=== PATIENT | male | born 1950 | race Caucasian/White ===

== ENCOUNTER 2017-09-28 08:32 | Inpatient (IN) | payer MEDICARE, OTHER ==
[~2017-09-28] VITALS: Ht 177.8 cm; Wt 87.5 kg
[~2017-09-28 08:32] MED LIST: AMLODIPINE-BENAZ PO
[2017-09-28] MEDS ORDERED: AML PO (08:41)
[2017-09-28] MEDS ORDERED: PANTOPRAZOLE 40 MG 10ML VIAL IV STA (09:00)
[2017-09-28] MEDS ORDERED: SODIUM CHLORIDE 0.9% 1000ML 1,000 ML IV STA (09:00)
[2017-09-28 10:00] LABS: BASOPHILS % 0.3 % (0.0-1.0); EOSINOPHILS % 0.1 % (0.0-6.0); HEMATOCRIT 33.1 % (38.2-49.6); HEMOGLOBIN 11.7 g/dL (14.0-18.0); LYMPHOCYTES # (AUTO) 1.2 (1.0-3.2); LYMPHOCYTES % 8.6 % (18.0-39.1); MEAN CORPUSCULAR HEMOGLOBIN 34.1 pg (28-32); MEAN CORPUSCULAR HGB CONC 35.3 g/dL (31-35); MEAN CORPUSCULAR VOLUME 96.5 fL (81-99); MONOCYTES # (AUTO) 1.1 (0.2-0.8); MONOCYTES % 7.4 % (4.4-11.3); NEUTROPHILS # (AUTO) 11.8 (2.1-6.9); NEUTROPHILS % 82.7 % (38.7-80.0); PLATELET COUNT 169 x10e3/uL (140-360); RED BLOOD COUNT 3.43 x10e6/uL (4.3-5.7); RED CELL DISTRIBUTION WIDTH 12.4 % (11.7-14.4)
[2017-09-28 10:06] LABS: INR 0.99; PROTHROMBIN TIME 13.6 seconds (11.9-14.5)
[2017-09-28 10:07] LABS: PARTIAL THROMBOPLASTIN TIME 18.2 seconds (23.8-35.5)
[2017-09-28 10:23] LABS: ALANINE AMINOTRANSFERASE 19 IU/L (0-55); ALBUMIN 3.1 g/dL (3.5-5.0); ALBUMIN/GLOBULIN RATIO 1.4 (0.8-2.0); ALKALINE PHOSPHATASE 45 IU/L (40-150); ANION GAP 12.4 mmol/L (8-16); BLOOD UREA NITROGEN 25 mg/dL (7-26); BUN/CREATININE RATIO 31 (6-25); CALCIUM 8.3 mg/dL (8.4-10.2); CARBON DIOXIDE 23 mmol/L (22-29); CHLORIDE 108 mmol/L (98-107); EST GLOMERULAR FILTRATION RATE > 60 ML/MIN (60-); GLUCOSE 112 mg/dL (74-118); POTASSIUM 4.4 mmol/L (3.5-5.1); SODIUM 139 mmol/L (136-145)
[2017-09-28] MEDS ORDERED: SODIUM CHLORIDE 0.9% 250ML 250 ML IV ONE (11:15)
[2017-09-28] MEDS: D5.45%NS/KCL 20MEQ 1,000 ML IV SCH (12:25)
--- NOTE | 2017-09-28 12:45 | History and Physical ---
This patient comes in with GI bleed. HISTORY OF PRESENT ILLNESS: Mr. Meng Felton is a 67-year-old gentleman with a history of hypertension and reflux. He was in his usual state of health until 1 day prior to admission. The patient started to have diarrhea and some rectal bleeding. The patient has been seen by Dr. Arredondo, his recruiting administrator, and has a history of diverticulosis. He thought it would pass; but this morning, the patient continued to have continuous diarrhea and came into the emergency room because he had a near syncopal episode. He could not make it to his bed, and he was admitted for the same. PAST MEDICAL HISTORY: Fairly healthy gentleman with a history of hypertension. He takes amlodipine 5 mg daily. No other medical history. SURGICAL HISTORY: Noncontributory. SOCIAL HISTORY: Positive for drinking. He drinks about 4 alcoholic beverages of bourbon a night. No smoking. No IV drug abuse either. REVIEW OF SYSTEMS: Negative for chest pain. Positive for some shortness of breath on walking today. No nausea. No vomiting. Positive for diarrhea with hematochezia. No hematemesis. No bloody urine. No dysuria. Positive for some abdominal pain, which is diffuse. Otherwise, negative. No diplopia. No blurry vision. Positive for near syncopal episode this morning. PHYSICAL EXAMINATION GENERAL: The patient is alert and oriented times 3. VITAL SIGNS: Blood pressure is 122/72, temperature 97, pulse ox 100%. CV: S1 and S2 normal, regular rate and rhythm. LUNGS: Clear to auscultation bilaterally. ABDOMEN: Slight amount of tenderness in the left lower quadrant, otherwise negative. EXTREMITIES: No clubbing, no cyanosis, no edema. LABORATORY VALUES: White count 14,000, hemoglobin 11.7, hematocrit 33.1, platelet count 169. Neutrophil count is high at 11.8. Chemistry shows sodium 139, potassium 4.4, chloride 108, estimated GFR was about 60. ALT and AST normal. Also, glucose is normal. Coags were also normal. ASSESSMENT: Gastrointestinal bleed, probably diverticular in nature. The patient will do serial H and H's and keep the patient in-house. His vitals are stable at this time. We will continue monitoring him. We will not start his amlodipine at this time. Consult to Dr. Turk has been done. I have also ordered the appropriate stool studies. Further recommendations per clinical course. Will continue to monitor the patient along with GI. Dr. Mckenzie will take over the case tomorrow. Job#: [id number]
[2017-09-28 16:20] LABS: HEMATOCRIT 29.7 % (38.2-49.6); HEMOGLOBIN 10.4 g/dL (14.0-18.0)
[2017-09-28 22:40] LABS: HEMATOCRIT 27.4 % (38.2-49.6); HEMOGLOBIN 9.8 g/dL (14.0-18.0)
[2017-09-28 23:04] VITALS: BP 124/64
[2017-09-29] MEDS: D5.45%NS/KCL 20MEQ 1,000 ML IV SCH ×2 (01:07→16:00)
[2017-09-29 01:26] VITALS: BP 128/53
[2017-09-29 04:31] LABS: ANION GAP 8.2 mmol/L (8-16); BLOOD UREA NITROGEN 18 mg/dL (7-26); BUN/CREATININE RATIO 24 (6-25); CALCIUM 8.1 mg/dL (8.4-10.2); CARBON DIOXIDE 24 mmol/L (22-29); CHLORIDE 107 mmol/L (98-107); CREATININE, SERUM 0.76 mg/dL (0.72-1.25); EST GLOMERULAR FILTRATION RATE > 60 ML/MIN (60-); GLUCOSE 119 mg/dL (74-118); POTASSIUM 4.2 mmol/L (3.5-5.1); SODIUM 135 mmol/L (136-145)
[2017-09-29 04:46] LABS: BASOPHILS % 0.3 % (0.0-1.0); EOSINOPHILS % 0.3 % (0.0-6.0); HEMATOCRIT 26.9 % (38.2-49.6); HEMOGLOBIN 9.6 g/dL (14.0-18.0); LYMPHOCYTES # (AUTO) 1.5 (1.0-3.2); LYMPHOCYTES % 23.9 % (18.0-39.1); MEAN CORPUSCULAR HEMOGLOBIN 34.2 pg (28-32); MEAN CORPUSCULAR HGB CONC 35.7 g/dL (31-35); MEAN CORPUSCULAR VOLUME 95.7 fL (81-99); MONOCYTES # (AUTO) 0.5 (0.2-0.8); MONOCYTES % 8.1 % (4.4-11.3); NEUTROPHILS # (AUTO) 4.1 (2.1-6.9); NEUTROPHILS % 66.8 % (38.7-80.0); PLATELET COUNT 136 x10e3/uL (140-360); RED BLOOD COUNT 2.81 x10e6/uL (4.3-5.7); RED CELL DISTRIBUTION WIDTH 12.1 % (11.7-14.4)
[2017-09-29] MEDS: PANTOPRAZOLE 40 MG 10ML VIAL IV SCH (09:15)
[2017-09-29 12:02] LABS: HEMATOCRIT 28.3 % (38.2-49.6); HEMOGLOBIN 10.1 g/dL (14.0-18.0)
[2017-09-29 19:11] LABS: HEMATOCRIT 27.9 % (38.2-49.6); HEMOGLOBIN 9.9 g/dL (14.0-18.0)
[2017-09-30] VITALS: BP 149/80
[2017-09-30 00:10] LABS: HEMATOCRIT 25.7 % (38.2-49.6); HEMOGLOBIN 9.3 g/dL (14.0-18.0)
[2017-09-30] MEDS: D5.45%NS/KCL 20MEQ 1,000 ML IV SCH (03:08)
[2017-09-30 03:31] VITALS: BP 149/80
[2017-09-30 04:00] VITALS: BP 110/61
[2017-09-30] MEDS: PANTOPRAZOLE 40 MG 10ML VIAL IV SCH (09:20)
[2017-09-30 09:33] VITALS: BP 138/82
== END 2017-09-30 10:20 | disposition home or self-care (01) | DRG 379 ==
LOC: ER 08:32 → ERHOLD 20:21 → MED/SURG 09-29 22:53
PROVIDERS: ADMIT Internal Medicine; ATTEND Internal Medicine
DX: K57.91 Diverticulosis of intestine, part unspecified, without perforation or abscess with bleeding (principal); I10 Essential (primary) hypertension; D64.9 Anemia, unspecified; K21.9 Gastro-esophageal reflux disease without esophagitis; Z28.21 Immunization not carried out because of patient refusal
CPT/HCPCS: 36415; 80048; 80053; 83630; 85014; 85018; 85025; 85610; 85730; 86256; 86671; 86850; 86900; 86920; 93005; 99284; J7030